=== PATIENT | female | born 1980 | race American Indian/Alaskan Native ===

== ENCOUNTER 2019-06-09 20:50 | Emergency (ER) | payer OTHER ==
[2019-06-09 23:43] LABS: Bilirubin,Urine NEG (Negative); Blood,Urine SM (Negative); Color,Urine Yellow (Yellow); Mucus,Urine FEW /HPF; Protein,Urine <15 mg/dL mg/dL (Negative); Urobilinogen,Urine < 2.0 mg/dL (<2.0)
[2019-06-10] LABS: HCG Qualitative,Urine Positive (Negative)
[2019-06-10] MEDS ORDERED: ACETAMINOPHEN 500 MG TAB PO ONE (00:34)
--- NOTE | 2019-06-10 00:37 | Emergency Department Report ---
ED Female HPI - General Chief complaint: Abdominal Pain Stated complaint: BACK PAIN, ABD PAIN, PREGANT Time Seen by Provider: 06/10/19 00:30 Source: patient Mode of arrival: Ambulatory Limitations: No Limitations - History of Present Illness Initial comments: Mrs. Rodríguez is a 39-year-old female with history of uterine fibroids and hypertension who presents with neck and back pain after helping her relative move heavy furniture. She subsequently developed pelvic cramping. She has missed a recent period. Her last menstrual period was approximately 8 weeks ago at the beginning of April. Denies vaginal bleeding. This is her first . She had a positive home urine tests. Mild pelvic cramping. Mild achy pain and neck and back. She takes amlodipine 10 mg for hypertension. She has a history of myomectomy for uterine fibroids. MD Complaint: vaginal bleeding, pelvic pain -: Gradual, days(s) (1) Location: suprapubic Severity: mild Quality: cramping Consistency: constant Improves with: none Worsens with: none Are you Now?: Yes Associated Symptoms: other (back and neck pain) - Related Data Allergies Allergy/AdvReac Type Severity Reaction Status Date / Time No Known Allergies Allergy Unverified 06/09/19 23:26 ED Review of Systems ROS: Stated complaint: BACK PAIN, ABD PAIN, PREGANT Other details as noted in HPI Comment: All other systems reviewed and negative Constitutional: denies: fever, malaise Gastrointestinal: denies: nausea, vomiting Genitourinary: other (pelvic pain) Musculoskeletal: back pain ED Past Medical Hx - Past Medical History Previous Medical History?: Yes Hx Hypertension: Yes - Surgical History Past Surgical History?: Yes Additional Surgical History: Fibroids - Social History Smoking Status: Never Smoker Substance Use Type: None ED Physical Exam - General Limitations: No Limitations General appearance: alert, in no apparent distress - Head Head exam: Present: atraumatic, normocephalic - Eye Eye exam: Present: normal appearance - ENT ENT exam: Present: mucous membranes moist - Neck Neck exam: Present: normal inspection, full ROM - Respiratory Respiratory exam: Present: normal lung sounds bilaterally. Absent: respiratory distress, wheezes, rhonchi - Cardiovascular Cardiovascular Exam: Present: regular rate, normal rhythm, normal heart sounds. Absent: systolic murmur, diastolic murmur, rubs, gallop - GI/Abdominal GI/Abdominal exam: Present: soft, distended (gravid), normal bowel sounds. Absent: tenderness, guarding, rebound - Extremities Exam Extremities exam: Present: normal inspection - Back Exam Back exam: Present: normal inspection, full ROM. Absent: tenderness, CVA tenderness (R), CVA tenderness (L), muscle spasm, paraspinal tenderness, vertebral tenderness - Neurological Exam Neurological exam: Present: alert, oriented X3 - Psychiatric Psychiatric exam: Present: normal affect, normal mood - Skin Skin exam: Present: warm, dry, intact, normal color. Absent: rash ED Course Vital Signs 06/09/19 06/10/19 20:53 01:46 Temperature 122.0 F H Pulse Rate 96 H Respiratory 18 18 Rate Blood Pressure 143/95 O2 Sat by Pulse 100 Oximetry ED Medical Decision Making - Lab Data Laboratory Results - last 24 hr 06/09/19 06/10/19 23:27 00:45 HCG, Quant 131.7 H Urine Color Yellow Urine Turbidity Clear Urine pH 5.0 Ur Specific [place] 1.023 Urine Protein <15 mg/dl Urine Glucose (UA) Neg Urine Ketones Neg Urine Blood Sm Urine Nitrite Neg Urine Bilirubin Neg Urine Urobilinogen < 2.0 Ur Leukocyte Esterase Neg Urine WBC (Auto) 1.0 Urine RBC (Auto) 2.0 U Epithel Cells (Auto) 5.0 Urine Mucus Few Urine HCG, Qual Positive A Laboratory Results - last 24 hr 06/09/19 06/10/19 23:27 00:45 HCG, Quant 131.7 H Urine Color Yellow Urine Turbidity Clear Urine pH 5.0 Ur Specific [place] 1.023 Urine Protein <15 mg/dl Urine Glucose (UA) Neg Urine Ketones Neg Urine Blood Sm Urine Nitrite Neg Urine Bilirubin Neg Urine Urobilinogen < 2.0 Ur Leukocyte Esterase Neg Urine WBC (Auto) 1.0 Urine RBC (Auto) 2.0 U Epithel Cells (Auto) 5.0 Urine Mucus Few Urine HCG, Qual Positive A - Radiology Data Radiology results: report reviewed Ultrasound revealed fibroid uterus and large 15 cm with 40 mm endometrial thickness. No IUP appreciated at this time. - Medical Decision Making Mrs. Rodríguez presents with +UPT and pelvic cramping DDX: Ectopic versus missed miscarriage versus early I strongly urged her to return to emergency department for repeat serial quantitative levels. She was given return precautions. Critical care attestation.: If time is entered above; I have spent that time in minutes in the direct care of this critically ill patient, excluding procedure time. ED Disposition Clinical Impression: Uterine fibroids affecting , Threatened miscarriage Disposition: TO HOME OR SELFCARE Is pt being admited?: No Does the pt Need Aspirin: No Condition: Stable Additional Instructions: Please return to emergency department in 2 days for repeat hCG level to rule out ectopic . Referrals: PRIMARY CARE, [Primary Care Provider] - 3-5 Days SABINO VILLAR MD [Staff Physician] - 3-5 Days
--- NOTE | 2019-06-10 02:03 | Ultrasound Report ---
Pelvic ultrasound with Doppler INDICATION: Pelvic pain FINDINGS: Fibroid uterus which is enlarged measuring 15 x 8 x 14 cm. Endometrial thickness is 14 mm. Both ovaries are unremarkable. No intrauterine IMPRESSION: Fibroid uterus. No intrauterine appreciated at this time.. Signer Name: Lionel Aguilar MD Signed: 06/10/2019 1:58 AM Workstation Name: [id number]
[2019-06-10 03:06] VITALS: BP 135/84
== END 2019-06-10 04:16 | disposition home or self-care (01) ==
LOC: ED 20:50
DX: O20.0 Threatened abortion (principal); O34.11 Maternal care for benign tumor of corpus uteri, first trimester; O16.1 Unspecified maternal hypertension, first trimester; Z3A.08 8 weeks gestation of pregnancy
CPT/HCPCS: 36415; 76801; 76817; 81001; 81025; 84702

== ENCOUNTER 2019-08-12 06:01 | Emergency (ER) | payer OTHER ==
[2019-08-12] MEDS ORDERED: ACETAMINOPHEN 500 MG TAB PO ONE (07:44)
[2019-08-12 08:37] LABS: Bilirubin,Urine NEG (Negative); Blood,Urine NEG (Negative); Color,Urine Yellow (Yellow); Mucus,Urine FEW /HPF; Protein,Urine <15 mg/dL mg/dL (Negative); Urobilinogen,Urine < 2.0 mg/dL (<2.0)
[2019-08-12 08:40] LABS: HCG Qualitative,Urine Positive (Negative)
[2019-08-12 08:45] LABS: Basophils % (Auto) 0.4 % (0.0-1.8); Eosinophils % (Auto) 0.4 % (0.0-4.3); Hematocrit 36.5 % (30.3-42.9); Hemoglobin 12.6 gm/dl (10.1-14.3); Lymphocytes # (Auto) 0.8 K/mm3 (1.2-5.4); Lymphocytes % (Auto) 7.4 % (13.4-35.0); Mean Corpuscular HGB Conc 35 % (30-34); Mean Corpuscular Volume 87 fl (79-97); Monocytes % (Auto) 8.7 % (0.0-7.3); Platelet Count 252 K/mm3 (140-440); Red Blood Count 4.21 M/mm3 (3.65-5.03); Red Cell Distribution Width 13.5 % (13.2-15.2)
[2019-08-12 09:16] LABS: BUN/Creatinine Ratio 18; Blood Urea Nitrogen 9 mg/dL (7-17); Calcium 9.9 mg/dL (8.4-10.2); Hemolysis Index 6
--- NOTE | 2019-08-12 10:57 | Emergency Department Report ---
ED HPI - General Chief complaint: Abdominal Pain Stated complaint: LOWER ABDOMINAL PAIN Time Seen by Provider: 08/12/19 07:32 Source: patient Mode of arrival: Ambulatory Limitations: No Limitations - History of Present Illness Initial comments: This is a 39-year-old female nontoxic, well nourished in appearance, no acute signs of distress presents to the ED with c/o of pelvic pain x few days. Patient stated she is about 12 weeks . Stated has been following up with [facility]. Stated has history of fibroids that was told to her was enlarged. Patient denies any nausea or vomiting. Patient describes pelvic pain as cramping and aching with level of 8/10 diffuse. Patient denies chest pain, short of breath, fever, chills, headache, stiff neck, numbness or tingling. Patient denies any diarrhea or constipation. Patient denies any vaginal bleeding. Patient denies any recent travels. Patient denies any allergies or significant PMH. MD Complaint: other (pelvic pain) -: days(s) Location: pelvis Radiation: none Severity: mild Severity scale (0 -10): 8 Quality: cramping, aching Consistency: constant Improves with: none Worsens with: none Associated symptoms: denies: nausea/vomiting, vaginal bleeding, vaginal discharge, abdominal pain, dysuria, headache, vision changes, malaise, dysparuenia, rash, seizure, shortness of breath, syncope, weakness Vaginal bleeding: none :: Yes Number of weeks : 12 Pre- care: followed by OB - Related Data Allergies Allergy/AdvReac Type Severity Reaction Status Date / Time No Known Allergies Allergy Verified 08/12/19 06:02 ED Review of Systems ROS: Stated complaint: LOWER ABDOMINAL PAIN Other details as noted in HPI Constitutional: denies: chills, fever Eyes: denies: eye pain, eye discharge, vision change ENT: denies: ear pain, throat pain Respiratory: denies: cough, shortness of breath, wheezing Cardiovascular: denies: chest pain, palpitations Endocrine: no symptoms reported Gastrointestinal: denies: abdominal pain, nausea, vomiting, diarrhea Genitourinary: denies: urgency, dysuria, discharge Musculoskeletal: denies: back pain, joint swelling, arthralgia Skin: denies: rash, lesions Neurological: denies: headache, weakness, paresthesias Psychiatric: denies: anxiety, depression Hematological/Lymphatic: denies: easy bleeding, easy bruising ED Past Medical Hx - Past Medical History Previous Medical History?: Yes Hx Hypertension: Yes Additional medical history: fibroids - Surgical History Past Surgical History?: Yes Additional Surgical History: Fibroids. Myoectomy - Social History Smoking Status: Never Smoker Substance Use Type: None ED Physical Exam - General Limitations: No Limitations General appearance: alert, in no apparent distress - Head Head exam: Present: atraumatic, normocephalic - Eye Eye exam: Present: normal appearance - Neck Neck exam: Present: normal inspection, full ROM. Absent: tenderness, meningismus, lymphadenopathy - Respiratory Respiratory exam: Present: normal lung sounds bilaterally. Absent: respiratory distress, wheezes, rales, rhonchi, stridor, chest wall tenderness, accessory muscle use, decreased breath sounds, prolonged expiratory - Cardiovascular Cardiovascular Exam: Present: regular rate, normal rhythm, normal heart sounds. Absent: bradycardia, tachycardia, irregular rhythm, systolic murmur, diastolic murmur, rubs, gallop - GI/Abdominal GI/Abdominal exam: Present: soft, tenderness (pelvic area), normal bowel sounds. Absent: distended, guarding, rebound, rigid, diminished bowel sounds - Extremities Exam Extremities exam: Present: normal inspection, full ROM - Back Exam Back exam: Present: normal inspection, full ROM. Absent: tenderness, CVA tenderness (R), CVA tenderness (L), muscle spasm, paraspinal tenderness, vertebral tenderness, rash noted - Neurological Exam Neurological exam: Present: alert, oriented X3, normal gait - Psychiatric Psychiatric exam: Present: normal affect, normal mood - Skin Skin exam: Present: warm, dry, intact, normal color. Absent: rash ED Course Vital Signs 08/12/19 08/12/19 08/12/19 06:04 07:53 08:48 Temperature 98.8 F Pulse Rate 101 H Respiratory 18 18 18 Rate Blood Pressure 136/89 O2 Sat by Pulse 100 Oximetry 08/12/19 12:22 Temperature Pulse Rate 88 Respiratory Rate Blood Pressure O2 Sat by Pulse 98 Oximetry - Reevaluation(s) Reevaluation #1: 08/12/19 11:08 Patient is speaking in full sentences with no signs of distress noted. ED Medical Decision Making - Lab Data Result diagrams: 08/12/19 08:10 08/12/19 08:10 - Medical Decision Making This is a 39-year-old female that presents with pelvic pain during and uterine fibroids. Patient is stable and was examined by me. There is no abdominal tenderness. Negative signs of symptoms of appendicitis. Labs obtained. UA obtained. OB US obtained and dictated by the radiologist. Patient is notified of the report with no questions noted by the patient. Vital signs are stable prior to discharge. Patient was also instructed to Follow-up with a OBGYN doctor in 3-5 days or if symptoms worsen and continue return to emergency room as soon as possible. At time of discharge, the patient does not seem toxic or ill in appearance. No acute signs of distress noted. Patient agrees to discharge treatment plan of care. No further questions noted by the patient. Critical care attestation.: If time is entered above; I have spent that time in minutes in the direct care of this critically ill patient, excluding procedure time. ED Disposition Clinical Impression: Pelvic pain affecting Qualifiers: Trimester: second trimester Qualified Code(s): O26.892 - Other specified pregn rosalind related conditions, second trimester; R10.2 - Pelvic and perineal pain Uterine fibroid Qualifiers: Uterine leiomyoma location: unspecified location Qualified Code(s): D25.9 - Leiomyoma of uterus, unspecified Disposition: DC-01 TO HOME OR SELFCARE Is pt being admited?: No Does the pt Need Aspirin: No Condition: Stable Instructions: (ED), Uterine Fibroids (ED) Additional Instructions: Follow-up with a OBGYN doctor in 3-5 days or if symptoms worsen and continue return to emergency room as soon as possible. Referrals: PRIMARY CAREMD [Primary Care Provider] - 3-5 Days JAH TURNER MD [Staff Physician] - 3-5 Days [facility] [Provider Group] - 3-5 Days Forms: Work/School Release Form(ED)
[2019-08-12 10:58] VITALS: BP 136/89
--- NOTE | 2019-08-12 15:39 | Ultrasound Report ---
ULTRASOUND OBSTETRIC INDICATION / CLINICAL INFORMATION: pelvic pain. Clinical Gestational Age (GA): 12 weeks 5 days based on LMP TECHNIQUE: Transabdominal. COMPARISON: 06/10/2019 OB ultrasound FINDINGS: GESTATIONAL SAC: Well-defined oval shape and intrauterine in location. YOLK SAC: Not identified. EMBRYO/FETUS: No significant abnormality. - [place]-Rump Length = 6.9 cm = 13 weeks, 1 day(s). - Heart Rate, beats per minute (if present) = 157 ADNEXA: No significant abnormality of the right ovary. The left ovary cannot be visualized. FREE FLUID: None. ADDITIONAL FINDINGS: Multiple large uterine fibroids measuring as large as 11 cm in greatest dimensio n. A left-sided fibroid measures 11.1 x 9.8 x 10.3 cm. A fundal fibroid measures 8.3 x 8.1 x 11.3 cm. Additional fibroid in the uterine body measures 7.4 x 3.9 x 6 cm. IMPRESSION: 1. Single, living intrauterine with estimated sonographic age of 13 weeks, 1 day(s). 2. Multiple large uterine fibroids. Signer Name: Christian Joyner MD Signed: 08/12/2019 3:35 PM Workstation Name: [id number]
== END 2019-08-12 16:06 | disposition home or self-care (01) ==
LOC: ED 06:01
DX: O34.11 Maternal care for benign tumor of corpus uteri, first trimester (principal); D25.9 Leiomyoma of uterus, unspecified; I10 Essential (primary) hypertension; Z98.890 Other specified postprocedural states; Z3A.12 12 weeks gestation of pregnancy
CPT/HCPCS: 36415; 76801; 80048; 81001; 81025; 84702; 85025

== ENCOUNTER 2020-11-13 06:14 | Observation (INO) | payer MEDICAID ==
[2020-11-10 12:56] LABS: Basophils % (Auto) 0.5 % (0.0-1.8); Eosinophils % (Auto) 0.5 % (0.0-4.3); Hematocrit 40.5 % (30.3-42.9); Hemoglobin 13.9 gm/dl (10.1-14.3); Lymphocytes # (Auto) 0.8 K/mm3 (1.2-5.4); Lymphocytes % (Auto) 25.4 % (13.4-35.0); Mean Corpuscular HGB Conc 34 % (30-34); Mean Corpuscular Volume 85 fl (79-97); Monocytes # (Auto) 0.2 K/mm3 (0.0-0.8); Monocytes % (Auto) 6.8 % (0.0-7.3); Platelet Count 257 K/mm3 (140-440); Red Blood Count 4.79 M/mm3 (3.65-5.03); Red Cell Distribution Width 13.3 % (13.2-15.2)
--- NOTE | 2020-11-10 13:04 | Anesthesia Consultation ---
Anesthesia Consult and Med Hx Date of service: 11/13/20 - Airway Anesthetic Teeth Evaluation: Good ROM Head & Neck: Adequate Mental/Hyoid Distance: Adequate Mallampati Class: Class II Intubation Access Assessment: Good - Pre-Operative Health Status ASA Pre-Surgery Classification: ASA2 Proposed Anesthetic Plan: General Nerve Block: TAP - Pulmonary Hx Smoking: No Hx Asthma: No Hx Respiratory Symptoms: No COPD: No Hx Pneumonia: No Hx Sleep Apnea: No - Cardiovascular System Hx Hypertension: Yes - Central Nervous System Hx Seizures: No Hx Psychiatric Problems: No - Gastrointestinal Hx Gastroesophageal Reflux Disease: No - Endocrine Hx Renal Disease: No Hx End Stage Renal Disease: No Hx Hypothyroidism: No Hx Hyperthyroidism: No - Hematic Hx Anemia: Yes Hx Sickle Cell Disease: No - Other Systems Hx Alcohol Use: No Hx Cancer: No Hx Obesity: No
[2020-11-10 13:11] LABS: BUN/Creatinine Ratio 26; Blood Urea Nitrogen 18 mg/dL (7-17); Calcium 9.6 mg/dL (8.4-10.2); Hemolysis Index 1
--- NOTE | 2020-11-11 22:49 | History and Physical Report ---
History of Present Illness Date of examination: 11/10/20 History of present illness: Patient has been reassessed/reevaluated. H&P has been reviewed. No interval changes. This is a 40 years old female who presents with uterine fibroids. She complains of pelvic pain, pelvic pressure, menorrhagia and intermenstrual bleeding. Associated symptoms include urinary frequency. Treatment tried to date includes NSAIDs. Prior to today's visit the patient has had US of pelvis and sonohysterogram. Patient's symptoms when present disrupts her normal daily activities Patient desires definitive treatment Vital Signs: Patient Profile: 40 Years Old Female LMP: 11/09/2020 Height: 60 inches Weight: 134 pounds BMI: 26.17 Temp: 97.3 degrees F forehead Resp: 18 per minute BP supine: 102 / 60 Pt. in pain? no Menstrual History: LMP (date): 11/09/2020 Past History : 2 Term Births: 1 Premature Births: 0 Living Children: 1 Para: 1 Mult. Births: 0 Prev : 1 Prev. attempt? 0 Aborta: 1 Elect. Ab: 1 Spont. 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 Previous Tobacco Use: Signed On - 09/19/2020 Smoked Tobacco Use: Never smoker Smokeless Tobacco Use: Never Passive smoke exposure: no Drug use: no HIV high-risk behavior: no Caffeine use: 3 drinks per day Previous Alcohol Use: Signed On - 09/19/2020 Alcohol use: yes Type: occ Exercise: no Seatbelt use: 100 % Review of Systems General Complains of fatigue. Denies fever, chills, sweats, anorexia, weakness, malaise, weight loss and sleep disorder. Complains of menorrhagia, pelvic pain and painful periods. Denies vaginal discharge, incontinence, dysuria, hematuria, urinary frequency, amenorrhea, abnormal vaginal bleeding, genital sores, decreased libido, painful sex, urinary urgency, hot flashes, vaginal dryness, vaginal itching and vaginal odor. CV Denies chest pains, palpitations, syncope, dyspnea on exertion, orthopnea, PND and peripheral edema. Resp Denies cough, dyspnea at rest, excessive sputum, hemoptysis, wheezing and pleurisy. GI Denies nausea, vomiting, diarrhea, constipation, change in bowel habits, abdominal pain, melena, hematochezia, jaundice, gas/bloating, indigestion/heartburn, dysphagia and odynophagia. Breast Denies left breast lump, right breast lump, nipple discharge, bloody discharge from nipple, breast pain, abnormal mammogram and breast enlargement. Psych Denies depression, anxiety, irritability and mood swings. Past History Past Medical History: hypertension, other (SEE HPI) Past Surgical History: Other (SEE HPI) Social history: other (SEE HPI) Family history: other (SEE HPI) Medications and Allergies Allergies Allergy/AdvReac Type Severity Reaction Status Date / Time No Known Allergies Allergy Verified 11/07/20 13:46 Home Medications Medication Instructions Recorded Confirmed Last Taken Type Docusate Sodium [Colace] 100 mg PO BID PRN #30 capsule 02/02/20 11/07/20 Unknown Rx Ferrous Sulfate [Feosol 325 MG tab] 325 mg PO DAILY #90 tablet 02/02/20 11/13/20 11/12/20 09:00 Rx amLODIPine [Norvasc] 10 mg PO DAILY 11/07/20 11/13/20 11/13/20 05:00 History Active Meds: Active Medications Acetaminophen (Acetaminophen 500 Mg Tab) 1,000 mg PO ONCE NR Stop: 11/13/20 20:00 Celecoxib (Celecoxib 200 Mg Cap) 400 mg PO PREOP NR Stop: 11/13/20 20:00 Fentanyl (Fentanyl 100 Mcg/2 Ml Inj) 100 mcg IV ONCE NR Stop: 11/13/20 20:00 Gabapentin (Gabapentin 300 Mg Cap) 600 mg PO PREOP NR Stop: 11/13/20 20:00 Cefazolin Sodium (Ancef/Sterile Water 2 Gm/20 Ml) 2 gm in 20 mls @ 80 mls/hr IV PREOP NR; Protocol Stop: 11/13/20 23:01 Lactated Ringer's (Lactated Ringers) 1,000 mls @ 125 mls/hr IV DIRECT NIKITA Magnesium Oxide (Magnesium Oxide 400 Mg Tab) 400 mg PO ONCE NR Stop: 11/13/20 20:00 Midazolam HCl (Midazolam 2 Mg/2 Ml Inj) 2 mg IV PREOP NR Stop: 11/13/20 23:59 Review of Systems Constitutional: other (SEE HPI) Exam - Physical Exam Narrative exam: HEENT: normocephalic, no lesions or deformities Skin no ulcers, xanthomas Chest: respiratory effort normal, clear to auscultation CV: regular, normal S1-S2, no murmur, no rub, no gallop Abdomen: normal bowel sounds, soft, nontender, no HSM Well healed pfannenstiel scar Neuro: no gross anomalities Extremities: no clubbing, cyanosis, or edema 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 No evidence of cystocele or rectocele. Cervix: normal appearance, no lesions, no discharge Uterus: Enlarged 16- 18 week size Adnexae: Unable to palpate due to uterine size Rectovaginal: exam defered - Constitutional Vitals: Temp Pulse Resp BP Pulse Ox 98.4 F 88 18 134/82 98 11/10/20 12:30 11/10/20 12:30 11/10/20 12:30 11/10/20 12:30 11/10/20 12:30 Results - Labs CBC & Chem 7: 11/10/20 12:40 11/10/20 12:40 Assessment and Plan - Patient Problems (1) Fibroids, intramural Current Visit: No Status: Acute Plan to address problem: Diagnosis explained to patient . Questions answered. Discussed with patient various medical, surgical and radiological therapies common for treatment including expectant management, myomectomy hysterectomy and uterine artery embolization Patient desires robotic assisted total hysterectomy. Consent reviewed and signed . The risks and alternatives for this surgery were reviewed with the patient. Discuss the risks of the surgery including infection, bleeding possibly heavy enough to require a blood transfusion, possible damage to bowel, bladder or ureter. Patient understand that this surgery with make her sterile.Patient understands if her ovaries are removed she will become menopausal. Also if unable to complete robitcally a laparotomy may be required (2) Dysmenorrhea Current Visit: No Status: Acute Plan to address problem: Probably secondary to # 1 (3) Menorrhagia Current Visit: No Status: Acute Qualifiers: Menorrhagia type: with irregular cycle Qualified Code(s): N92.1 - Excessive and frequent menstruation with irregular cycle Plan to address problem: Probably secondary to # 1 (4) Pelvic pain Current Visit: No Status: Acute Plan to address problem: Probably secondary to # 1 (5) Hypertension Current Visit: No Status: Chronic Qualifiers: Hypertension type: essential hypertension Qualified Code(s): I10 - Essential (primary) hypertension
[~2020-11-13 06:14] MED LIST: ACETAMINOPHEN 500 MG TAB PO NR; CELECOXIB 200 MG CAP PO NR; GABAPENTIN 300 MG CAP PO NR; LACTATED RINGERS 1,000 ML IV SCH; MAGNESIUM OXIDE 400 MG TAB PO NR; MIDAZOLAM 2 MG/2 ML INJ IV NR; fentaNYL 100 MCG/2 ML INJ IV NR
[2020-11-13] MEDS ORDERED: GABAPENTIN 500 MG/10 ML ORAL LIQD ONE (06:51)
[2020-11-13] MEDS ORDERED: ACETAMINOPHEN 325 MG/10.15 ML ORAL LIQD UNIT DOSE ONE (06:51)
[2020-11-13] MEDS ORDERED: ACETAMINOPHEN 325 MG/10.15 ML ORAL LIQD UNIT DOSE PO NR (07:15)
[2020-11-13] MEDS ORDERED: GABAPENTIN 500 MG/10 ML ORAL LIQD PO NR (07:16)
[2020-11-13] MEDS ORDERED: LIDOCAINE MPF (2%) 20 MG/1 ML VIAL 5 ML ONE (07:43)
[2020-11-13] MEDS ORDERED: ROCURONIUM 50 MG/5 ML INJ IV ONE (07:43)
[2020-11-13] MEDS ORDERED: fentaNYL 100 MCG/2 ML INJ ONE (07:43)
[2020-11-13] MEDS ORDERED: propofoL 200 MG/20 ML VIAL IV ONE (07:44)
[2020-11-13] MEDS ORDERED: dexAMETHasone 4 MG/ML VIAL ONE ×2 (07:48→07:49)
[2020-11-13] MEDS ORDERED: BUPIVACAINE/PF (0.25%) 2.5 MG/ML 30 ML VIAL INFILTRATI ONE (07:48)
[2020-11-13] MEDS ORDERED: ONDANSETRON 4 MG/2 ML INJ IV PRN (07:57)
[2020-11-13] MEDS ORDERED: HYDROmorphone 1 MG/1 ML INJ IV PRN ×2 (07:57)
--- NOTE | 2020-11-13 07:57 | Anesthesia Day of Surgery ---
Anesthesia Day of Surgery - Day of Surgery Patient Examined: Yes Patient H&P Reviewed: Yes Patient is NPO: Yes
[2020-11-13] MEDS ORDERED: ceFAZolin/Water 2 GM/20 ML 2 GM/20 ML SYRINGE IV NR (08:00)
[2020-11-13] MEDS ORDERED: NEOMY 40 MG/POLYMYXIN B 200,000 UNITS/ML (GU) AMPULE IR ONE ×2 (08:01→09:35)
[2020-11-13] MEDS ORDERED: PHENYLEPHRINE 10 MG/1 ML INJ SDV ONE (08:44)
[2020-11-13] MEDS ORDERED: SODIUM CHLORIDE 0.9% IRRIG SOLN 2000 ML IR ONE (09:36)
[2020-11-13] MEDS ORDERED: HYDROmorphone 1 MG/1 ML INJ ONE (09:36)
[2020-11-13] MEDS ORDERED: SODIUM CHLORIDE 0.9% IRR 1,500 ML BOTTLE IR ONE (09:36)
[2020-11-13] MEDS ORDERED: ONDANSETRON 4 MG/2 ML INJ ONE (11:00)
[2020-11-13] MEDS ORDERED: GLYCOPYRROLATE 0.4 MG/2 ML INJ ONE (11:03)
[2020-11-13] MEDS ORDERED: NEOSTIGMINE 10MG/10 ML INJ MDV ONE (11:03)
[2020-11-13] MEDS ORDERED: KETOROLAC 30 MG/1 ML INJ ONE (11:08)
--- NOTE | 2020-11-13 11:40 | Operative Report ---
Operative Report Operative Report: Date of procedure: November 13, 2020 Pre-operative diagnosis: Symptomatic leiomyomata with dysmenorrhea and menorr halgia pelvic pain Post-operative diagnosis: Same plus pelvic adhesive disease and left ovarian cyst Procedure name(s):Robotic Assisted Total Hysterectomy with bilateral salpingectomy and lysis of adhesion Surgeon: Leo Cortés MD Brick Wheeler: Mouna Perez, certified substance abuse counselor Anesthesia: General EBL: 75 Complications: None Findings: Patient had a uterus approximately 16 weeks in size with 2 large myomas 1 posterior ~left measured about 7 to 8-minute centimeters in diameter the other was fundal about 9 cm in diameter patient with adhesions of the right adnexa densely to the posterior uterus. Left adnexa patient had a simple ovarian cyst there were bowel adhesions to the left adnexa and adhesions of the anterior wall to the anterior uterus and bladder. Specimen(s): Uterus with cervix and bilateral fallopian tubes Procedure: Patient was brought to the operating room where general anesthesia was induced without difficulty. Patient was placed in the dorsal lithotomy position. Prepped and draped in the usual sterile manner for robotic procedure. Cazares catheter was placed without difficulty. Speculum was placed in the vagina. A medium V-Care Uterine manipulator was placed without difficulty. Attention was now switched to the patient's abdomen. A vertical supra-umbilicus incision was made with a scalpel. A 10-12 trocar was placed in this incision under direct visualization. Intra-abdominal placement was verified with no evidence of internal organ damage. The patient pelvic findings were noted as above. It was determined that the patient was a candidate for robotic procedure. On both sides the umbilical incision at about 8 cm, incisions were made for robotic trocars. Each robotic trocar was placed under direct visualization with no evidence of internal organ damage. One 5 mm trocar was placed 2 fingerbreadths above the right iliac crest. A 5 mm camera was placed in the right lower quadrant trocar, the 10-12 trocar was removed and a Erlin Srivastava laparoscopic port closure device was placed through this incision under direct visualization with no evidence of internal organ damage. The camera was then replaced into this port. At this time the patient was placed in extreme Trendelenburg. The [employer] robot was then docked on the patient's left side. The trocars connected to the robot appropriately robotic instruments were placed under direct visualization no evidence of internal organ damage.. At this time I took my place under the robotic operating harding. The bowel adhesions were taken down carefully both bluntly and sharply left adnexa also the anterior adhesions to the uterus and bladder anterior wall were taken down sharply and bluntly with no evidence of internal organ damage. Lysis of adhesions did restore anatomy closely to normal position. Starting on the patient's right side the ureter was identified and found to be out of the operative field. Using the robotic vessel sealer the mesosalpinx under the distal portion this fallopian tube were cauterized and cut. The distal end of this tube was then removed through the access services assistant port. The dense adhesions were lysed free and the ovary with better visualization of the utero ovarian complex. The utero-ovarian complex was then cauterized and cut. This was followed by cauterizing and cutting the right fallopian tube and right round ligament. The broad ligament was then opened. The bladder flap was formed anteriorly. The posterior broad ligament was then excised. The uterine vessels were skeletonized. The ureter was clearly seen out of the operative field. The bladder was pushed away from the anterior uterus. The right uterine vessels were then cauterized and cut. Attention was then switched to the patient's left side. The left fallopian tube was then grasped the distal and and following under the mesosalpinx was from the ovary and mesosalpinx will follow medially the tube from the ovary. Utero-ovarian complex was then cauterized and cut. The round ligament was then cauterized and cut. The broad ligament on the left was entered as was done on the right side. This was followed by isolating the uterine vessels cauterized and cutting and completing the bladder flap from the left side. At this time the uterus was appearing very cyanotic. After inspecting the bladder flap to insured no evidence of bladder injury, the colpotomy was then started anteriorly due to the difficult visualization of posterior V care location due to the large myomas present. Incision started at 12:00 until the V-Care could be seen. This incision was extended from 12:00 to 3:00. Then from 6:00 to 3:00. Then from 12:00 to 9:00. This incision was extended from 9:00 to 6:00. At this time colpotomy was complete with no evidence of adjacent organ damage. Due to the large size of the uterus the large myomas were then removed to make accommodating removing the uterus through the colpotomy. Once the myomectomy was achieved, the plastic surgery coordinator remove the uterus from through the colpotomy site. This was followed by removing each of the detach myomas through the colpotomy. The vaginal cuff was irrigated and cauterized and found to be hemostatic. The cuff was closed with roboticly using 0 V- Lock suture. This closure was hemostatic after irrigation and Bovie. All pedicles were inspected and found to be hemostatic. The ureters were identified bilaterally and found to be functioning normal. The patient had clear urine in the Cazares catheter with no evidence of mixture with blood. Ky was placed on the cuff and pedicles for postoperative hemostasis . All instruments were then removed. The large trocar sites were closed in layers 2-0 Vicryl and 4-0 Monocryl. The smaller incisions were closed subcuticularly with 4-0 Monocryl. Dermabond was placed over the skin incisions. Once the patient was undraped a vaginal laceration was then noted midline that was easily closed with 3-0 Vicryl. The patient tolerated procedure well. She was awakened in the operating room and accompanied to the recovery room in good condition.
[2020-11-13] MEDS ORDERED: DOCUSATE SODIUM 100 MG CAP PO PRN (12:00)
[2020-11-13] MEDS ORDERED: D5W/LACTATED RINGERS 1,000 ML IV SCH (13:07)
[2020-11-13] MEDS ORDERED: KETOROLAC 30 MG/1 ML INJ IV PRN (13:07)
[2020-11-13] MEDS ORDERED: ACETAMINOPHEN 325 MG TAB PO PRN (13:07)
--- NOTE | 2020-11-13 14:17 | Post Anesthesia Evaluation ---
- Post Anesthesia Evaluation Patient Participated: Yes Airway Patent: Yes Stable Respiratory Function: Yes Nausea/Vomiting: No Temp > 96.8F: Yes Pain Manageable: Yes Adequeate Hydration: Yes Anesthesia Complications: No Block Receding Appropriately: Yes Patient on Ventilator: No
[2020-11-13] MEDS: HYDROcodone/ACETAMINOPHEN 5-325 MG TAB PO PRN (14:38)
[2020-11-13] MEDS ORDERED: ONDANSETRON 8 MG ODT TAB PO PRN (15:11)
[2020-11-13] MEDS: ceFAZolin/NS 1 GM/50 ML 1 GM/50 ML BAG IV SCH (15:25)
--- NOTE | 2020-11-13 17:59 | Progress Note ---
Assessment and Plan - Patient Problems (1) Fibroids, intramural Current Visit: No Status: Acute (2) Dysmenorrhea Current Visit: No Status: Acute (3) Menorrhagia Current Visit: No Status: Acute Qualifiers: Menorrhagia type: with irregular cycle Qualified Code(s): N92.1 - Excessive and frequent menstruation with irregular cycle (4) Pelvic pain Current Visit: No Status: Acute (5) Hypertension Current Visit: No Status: Chronic Qualifiers: Hypertension type: essential hypertension Qualified Code(s): I10 - Essential (primary) hypertension Plan to address problem: We will continue present home medications and monitor (6) Status post hysterectomy Current Visit: Yes Status: Acute Plan to address problem: Patient without fever. Will ambulate in halls this evening. Good urine output. We will continue routine postoperative care. (7) Nausea and vomiting Current Visit: Yes Status: Acute Qualifiers: Vomiting Intractability: non-intractable Plan to address problem: Patient with normal abdominal exam most likely secondary to anesthesia. Will give antiemetics. We will continue observation hospital until able to tolerate food intake (8) Status post robot-assisted surgical procedure Current Visit: Yes Status: Acute Subjective Date of service: 11/13/20 Patient Reports: Positive: still having pain, pain is less, voiding w/o difficulty, no flatus, nausea, vomiting, afebrile Narrative: Day of surgery. Discuss operative findings with patient and questions answered. Objective Vital Signs - 12hr 11/13/20 11/13/20 11/13/20 06:30 06:45 06:55 Temperature 98.4 F 98.4 F Pulse Rate 85 85 Respiratory 18 18 18 Rate Blood Pressure 130/83 130/83 O2 Sat by Pulse 98 98 Oximetry 11/13/20 11/13/20 11/13/20 07:45 07:50 07:51 Temperature Pulse Rate 78 74 Respiratory 15 18 16 Rate Blood Pressure 124/81 128/82 O2 Sat by Pulse 100 100 Oximetry 11/13/20 11/13/20 11/13/20 07:55 08:00 08:05 Temperature Pulse Rate 76 75 80 Respiratory 16 14 12 Rate Blood Pressure 113/63 109/72 103/64 O2 Sat by Pulse 99 97 98 Oximetry 11/13/20 11/13/20 11/13/20 08:10 08:15 08:22 Temperature Pulse Rate 72 76 Respiratory 14 19 14 Rate Blood Pressure 113/72 108/65 O2 Sat by Pulse 100 99 Oximetry 11/13/20 11/13/20 11/13/20 11:34 11:40 11:45 Temperature 96.5 F L Pulse Rate 86 86 74 Respiratory 12 13 13 Rate Blood Pressure 134/85 132/83 146/89 O2 Sat by Pulse 100 100 100 Oximetry 11/13/20 11/13/20 11/13/20 11:50 12:05 12:20 Temperature 97.5 F L Pulse Rate 71 71 80 Respiratory 15 15 14 Rate Blood Pressure 150/90 151/93 152/95 O2 Sat by Pulse 100 100 99 Oximetry 11/13/20 11/13/20 11/13/20 12:35 12:40 16:56 Temperature 97.8 F 98.0 F 98.6 F Pulse Rate 79 80 76 Respiratory 15 16 18 Rate Blood Pressure 147/75 148/93 150/90 O2 Sat by Pulse 98 100 100 Oximetry - General physical appearance well developed - Respiratory normal expansion, normal respiratory effort - Abdomen soft, tender (Appropriate postop), bowel sounds hypoactive, distended (Slightly compatible with day of surgery), surgical scars (Healing well with no evidence of infection) - Integumentary no rash, no growths, no abnormal pigmentation - Neurologic normal coordination, normal sensation - Musculoskeletal normal gait - Psychiatric oriented to time, oriented to person, oriented to place, speech is normal, memory intact - Labs 11/10/20 12:40 11/10/20 12:40 Hemoglobin hematocrit pending
[2020-11-13 18:20] LABS: Hematocrit 38.8 % (30.3-42.9); Hemoglobin 13.1 gm/dl (10.1-14.3)
[2020-11-14] MEDS: ceFAZolin/NS 1 GM/50 ML 1 GM/50 ML BAG IV SCH (00:46)
[2020-11-14] MEDS: DOCUSATE SODIUM 100 MG CAP PO SCH ×2 (00:47→10:20)
[2020-11-14] MEDS: HYDROcodone/ACETAMINOPHEN 5-325 MG TAB PO PRN ×2 (00:47→07:36)
[2020-11-14 06:28] LABS: Hematocrit 35.7 % (30.3-42.9); Hemoglobin 12.1 gm/dl (10.1-14.3)
[2020-11-14] MEDS ORDERED: amLODIPine 10 MG TAB PO SCH (10:00)
[2020-11-14] MEDS ORDERED: FERROUS SULFATE 325 MG TAB PO SCH (10:00)
[2020-11-14] MEDS ORDERED: IBUPROFEN 800 MG TAB PO PRN (11:28)
--- NOTE | 2020-11-14 12:51 | Short Stay Summary ---
Short Stay Documentation Date of service: 11/13/20 - History Past Medical History: hypertension, other (SEE HPI) Past Surgical History: Other (SEE HPI) Social history: other (SEE HPI) - Allergies and Medications Current Medications: Allergies No Known Allergies Allergy (Verified 11/07/20 13:46) Home Medications Medication Instructions Recorded Confirmed Last Taken Type Docusate Sodium [Colace] 100 mg PO BID PRN #30 capsule 02/02/20 11/07/20 Unknown Rx Ferrous Sulfate [Feosol 325 MG tab] 325 mg PO DAILY #90 tablet 02/02/20 11/13/20 11/12/20 09:00 Rx amLODIPine [Norvasc] 10 mg PO DAILY 11/07/20 11/13/20 11/13/20 05:00 History Ibuprofen [Motrin 800 MG tab] 800 mg PO Q8H PRN #30 tablet 11/13/20 Unknown Rx oxyCODONE /ACETAMINOPHEN [Percocet 1 - 2 tab PO Q6HR PRN #20 tablet 11/13/20 Unknown Rx 5/325 mg] Active Medications Acetaminophen (Acetaminophen 325 Mg Tab) 650 mg PO Q4H PRN PRN Reason: Pain MILD(1-3)/Fever >100.5/[place] Hydrocodone Bitart/Acetaminophen (Hydrocodone/Acetaminophen 5-325 Mg Tab) 2 each PO Q6H PRN PRN Reason: Pain, Moderate (4-6) Last Admin: 11/14/20 07:36 Dose: 2 each Documented by: Amlodipine Besylate (Amlodipine 10 Mg Tab) 10 mg PO DAILY [facility] Last Admin: 11/14/20 10:20 Dose: 10 mg Documented by: Docusate Sodium (Docusate Sodium 100 Mg Cap) 100 mg PO BID [facility] Last Admin: 11/14/20 10:20 Dose: 100 mg Documented by: Ferrous Sulfate (Ferrous Sulfate 325 Mg Tab) 325 mg PO DAILY [facility] Last Admin: 11/14/20 10:20 Dose: 325 mg Documented by: Dextrose/Lactated Ringer's ([email or web address]) 1,000 mls @ 125 mls/hr IV DIRECT [facility] Last Admin: 11/13/20 14:38 Dose: 125 mls/hr Documented by: Ibuprofen (Ibuprofen 800 Mg Tab) 800 mg PO Q8H PRN PRN Reason: Pain, Mild (1-3) Last Admin: 11/14/20 10:20 Dose: 800 mg Documented by: Ketorolac Tromethamine (Ketorolac 30 Mg/1 Ml Inj) 30 mg IV Q6H PRN PRN Reason: Pain, Moderate (4-6) Stop: 11/18/20 13:06 Last Admin: 11/13/20 17:02 Dose: 30 mg Documented by: Ondansetron HCl (Ondansetron 8 Mg Odt Tab) 8 mg PO Q8H PRN PRN Reason: Nausea And Vomiting Last Admin: 11/13/20 15:24 Dose: 8 mg Documented by: - Physical exam General appearance: no acute distress Integumentary: no rash HEENT: Atraumatic Lungs: Normal air movement Breasts: deferred Gastrointestinal: tenderness (Appropriate postop) Female Genitourinary: deferred Rectal Exam: deferred Extremities: no ischemia, pulses intact Neurological: Normal gait, Normal speech - Brief post op/procedure progress note Date of procedure: 11/13/20 (See dictated operative note for details) - Hospital course Hospital course: Patient was admitted and underwent above procedure without complications. Her post operative course was complicated by nausea and vomiting day of surgery requiring overnight stay in hospital. She was afebrile throughout. Patient postoperative day 1 hematocrit was in an acceptable range. Patient had no orthostatic symptoms. Patient was tolerating regular diet and voiding without difficulty at time of discharge. Patient incision was healing well without evidence of infection. - Disposition Condition at discharge: Good Disposition: [id number] TO HOME OR SELFCARE - Discharge Diagnoses (1) Fibroids, intramural Status: Acute (2) Dysmenorrhea Status: Acute (3) Menorrhagia Status: Acute Qualifiers: Menorrhagia type: with irregular cycle Qualified Code(s): N92.1 - Excessive and frequent menstruation with irregular cycle (4) Pelvic pain Status: Acute (5) Hypertension Status: Chronic Qualifiers: Hypertension type: essential hypertension Qualified Code(s): I10 - Essential (primary) hypertension (6) Status post hysterectomy Status: Acute (7) Nausea and vomiting Status: Acute Qualifiers: Vomiting Intractability: non-intractable (8) Status post robot-assisted surgical procedure Status: Acute Short Stay Discharge Plan Activity: advance as tolerated Diet: regular Wound: open to air Additional Instructions: Call your doctor immediately for: * Fever > 100.5 * Heavy vaginal bleeding ( >1 pad per hour) * Severe persistent headache * Shortness of breath * Reddened, hot, painful area to leg or breast * Drainage or odor from incision. * Keep incision clean and dry at all times and follow doctor's instructions regarding bathing/showering Follow up with: LENA VEGAS MD [Primary Care Provider] - 7 Days Forms: [facility] Discharge Summary Prescriptions: Ibuprofen [Motrin 800 MG tab] 800 mg PO Q8H PRN #30 tablet PRN Reason: Pain oxyCODONE /ACETAMINOPHEN [Percocet 5/325 mg] 1 - 2 tab PO Q6HR PRN #20 tablet PRN Reason: Pain
[2020-11-14 13:09] VITALS: BP 117/74
== END 2020-11-14 13:35 | disposition home or self-care (01) ==
LOC: OR 06:14 → OB 11:28
PROVIDERS: ADMIT Obstetrics & Gynecology; ATTEND Obstetrics & Gynecology
DX: N92.0 Excessive and frequent menstruation with regular cycle (principal); D25.1 Intramural leiomyoma of uterus; R10.2 Pelvic and perineal pain; I10 Essential (primary) hypertension; N94.6 Dysmenorrhea, unspecified; R11.2 Nausea with vomiting, unspecified; Z98.890 Other specified postprocedural states; Z90.710 Acquired absence of both cervix and uterus; Z98.891 History of uterine scar from previous surgery
CPT/HCPCS: 36415; 58573; 64450; 80048; 84703; 85014; 85018; 85025; 86850; 86900; 86901; 88307; 96361; 96365; 96366; 96375; A4217; G0378; J0690; J1100; J1170; J1885; J2250; J2370; J2405; J2704; J2710; J3010; J7120; J7121; Q0162; S2900